=== PATIENT | female | born 1980 | race Hispanic/Latino ===

== ENCOUNTER 2020-03-07 19:53 | Emergency (ER) | payer BC ==
[~2020-03-07] VITALS: Ht 165.1 cm; Wt 66.7 kg
== END 2020-03-07 22:18 | disposition home or self-care (01) ==
LOC: FSED 20:13
DX: O09.521 Supervision of elderly multigravida, first trimester (principal); O26.811 Pregnancy related exhaustion and fatigue, first trimester
CPT/HCPCS: 81025; 99282